=== PATIENT | male | born 1990 | race Caucasian/White ===

== ENCOUNTER 2024-03-27 01:07 | Emergency (ER) | payer OTHER ==
[~2024-03-27] VITALS: Ht 172.7 cm; Wt 72.6 kg
[2024-03-27 01:30] VITALS: TEMP 98.4
[2024-03-27 01:32] LABS: BASOPHILS # (AUTO) 0.1 (0.0-0.1); BASOPHILS % 0.6 % (0.0-1.0); EOSINOPHILS % 0.3 % (0.0-6.0); HEMATOCRIT 46.2 % (38.2-49.6); HEMOGLOBIN 15.3 g/dL (14.0-18.0); LYMPHOCYTES % 16.9 % (18.0-39.1); MEAN CORPUSCULAR HEMOGLOBIN 29.4 pg (28-32); MEAN CORPUSCULAR HGB CONC 33.1 g/dL (31-35); MEAN CORPUSCULAR VOLUME 88.8 fL (81-99); MONOCYTES % 8.3 % (4.4-11.3); NEUTROPHILS # (AUTO) 8.7 (2.1-6.9); NEUTROPHILS % 73.6 % (38.7-80.0); PLATELET COUNT 284 x10e3/uL (140-360); RED CELL DISTRIBUTION WIDTH 13.2 % (11.7-14.4); WHITE BLOOD COUNT 11.75 x10e3/uL (4.8-10.8)
[2024-03-27] MEDS: DIAZEPAM INJ 5 MG/ML 2 ML IV STA (01:33)
[2024-03-27] MEDS: SODIUM CHLORIDE 0.9% 1000ML 2,000 ML IV STA (01:33)
[2024-03-27 01:48] LABS: ALBUMIN 4.4 g/dL (3.5-5.0); ALBUMIN/GLOBULIN RATIO 1.4 (0.8-2.0); ANION GAP 17.3 mmol/L (8-16); BILIRUBIN,TOTAL 0.4 mg/dL (0.2-1.2); CREATININE, SERUM 1.17 mg/dL (0.72-1.25); TOTAL PROTEIN 7.5 g/dL (6.5-8.1)
[2024-03-27 01:54] LABS: POTASSIUM 3.3 mmol/L (3.5-5.1)
[2024-03-27 01:55] LABS: ETHANOL < 10.0 mg/dL (0.0-10.0); SALICYLATE < 5.0 mg/dL (0-30)
[2024-03-27 04:18] VITALS: PULSE 92; RESP 18
[2024-03-27 04:23] LABS: OPIATES SCREEN,URINE NEGATIVE (NEGATIVE)
[2024-03-27 04:24] LABS: AMPHETAMINES SCREEN,URINE POSITIVE (NEGATIVE); CANNABINOIDS SCREEN,URINE POSITIVE (NEGATIVE); COCAINE SCREEN,URINE NEGATIVE (NEGATIVE); METHADONE SCREEN, URINE NEGATIVE (NEGATIVE); PHENCYCLIDINE SCREEN,URINE NEGATIVE (NEGATIVE)
[2024-03-27 04:25] LABS: BENZODIAZEPINES SCREEN,URINE POSITIVE (NEGATIVE)
[2024-03-27 04:44] VITALS: BP 137/84; PULSE 92; RESP 18; O2SAT 99
== END 2024-03-27 04:37 | disposition home or self-care (01) ==
LOC: ER 01:13
DX: R41.82 Altered mental status, unspecified (principal); F15.959 Other stimulant use, unspecified with stimulant-induced psychotic disorder, unspecified
CPT/HCPCS: 36415; 80053; 80307; 80320; 80329; 85025; 93005; 99283; J3360; J7030